=== PATIENT | female | born 1970 | race Caucasian/White ===

== ENCOUNTER 2017-01-09 12:51 | Emergency (ER) | payer MEDICAID, OTHER ==
[~2017-01-09] VITALS: Ht 162.6 cm; Wt 87.1 kg
[2017-01-09 13:00] VITALS: BP_SYST 133
--- NOTE | 2017-01-09 13:03 | NUR ---
Pt to bed 8 via wheelchair
--- NOTE | 2017-01-09 13:10 | NUR ---
PT. TO ER FOR RIGHT KNEE PAIN R/T TWIST THIS MORNING, PER PT. SHE HURT HER KNEE A WEEK AGO STATES THAT THIS MORNING SHE WAS PLAYING WITH HER DOG GOT OUT OF THE BED TOO FAST AND TWISTED HER KNEE HEARD A POP, PAIN 6/10, DENIES ANY OTHER COMPLAINT, NO REDNESS, MILD SWELLING AT SITE, LIMITES ROM OF THE KNEE
--- NOTE | 2017-01-09 13:16 | NUR ---
URINE PREG NEG IC PASS
--- NOTE | 2017-01-09 13:33 | NUR ---
DR. HUBBARD AT BEDSIDE EXAMINING THE PT.
--- NOTE | 2017-01-09 14:00 | NUR ---
Patient given written and verbal discharge instructions and verbalizes understanding. ER MD DR. HUBBARD discussed with patient the results and treatment provided. Patient in stable condition. ID arm band removed. Rx of ILTRAM NAPROXEN given. Patient educated on pain management and to follow up with PMD. Pain Scale 0/10 Opportunity for questions provided and answered.
== END 2017-01-09 14:00 | disposition home or self-care (01) ==
LOC: SED 12:51
DX: S83.91XA Sprain of unspecified site of right knee, initial encounter (principal); X50.1XXA Overexertion from prolonged static or awkward postures, initial encounter; Y93.9 Activity, unspecified; Y92.89 Other specified places as the place of occurrence of the external cause; Y99.8 Other external cause status
CPT/HCPCS: 73564; 81025; 99284

== ENCOUNTER 2018-12-22 21:13 | Emergency (ER) | payer MEDICAID ==
[~2018-12-22] VITALS: Ht 162.6 cm; Wt 83.9 kg
[2018-12-22] MEDS ORDERED: NACL 0.9% 1,000 ML IV ONE (21:38)
[2018-12-22 21:40] VITALS: BP_SYST 152
[2018-12-22] MEDS ORDERED: ONDANSETRON HCL 4 MG/2 ML VIAL IVP ONE (21:45)
[2018-12-22] MEDS ORDERED: ASPIRIN 81 MG TAB.CHEW PO ONE (21:45)
[2018-12-22 22:33] LABS: HEMATOCRIT 38.2 % (36-48); HEMOGLOBIN 12.8 g/dL (12.0-16.0); LYMPHOCYTES % (AUTO) 28.7 % (20.5-51.5); MEAN CORPUSCULAR HEMOGLOBIN 30 pg (27-31); MEAN CORPUSCULAR HGB CONC 34 % (32-36); MEAN CORPUSCULAR VOLUME 88 fL (79.0-98.0); MONOCYTES % (AUTO) 8.7 % (1.7-9.3); NEUTROPHILS % (AUTO) 60.2 % (40.0-70.0); PLATELET COUNT (AUTO) 262 K/uL (130-430); RED BLOOD CELL COUNT(AUTO) 4.35 MIL/uL (4.2-6.2); RED CELL DISTRIBUTION WIDTH 13.5 % (9.0-15.0); WHITE BLOOD COUNT (AUTO) 8.3 K/uL (4.8-10.8)
[2018-12-22 22:34] LABS: BASOPHILS % (AUTO) 0.4 % (0.0-2.0); EOSINOPHILS # (AUTO) 0.2 K/uL (0.0-0.4); LYMPHOCYTES # (AUTO) 2.4 K/uL (1.0-5.5); MONOCYTES # (AUTO) 0.7 K/uL (0.0-1.0)
[2018-12-22 22:41] LABS: CALCIUM 8.2 mg/dL (8.4-11.0); CREATININE 0.62 mg/dL (0.55-1.30); POTASSIUM 3.7 mmol/L (3.5-5.1)
[2018-12-22 22:47] LABS: ALBUMIN 3.2 g/dL (3.4-4.8); TOTAL BILIRUBIN 0.3 mg/dL (0.0-1.0)
[2018-12-22 22:56] LABS: INR 0.9 (0.8-1.2); PROTHROMBIN TIME 9.5 SECS (9.5-12.5)
[2018-12-22] MEDS ORDERED: KETOROLAC TROMETHAMINE 30 MG VIAL IVP ONE (23:00)
[2018-12-22 23:13] LABS: BILIRUBIN,URINE NEGATIVE (NEGATIVE); CLARITY/URINE CLEAR (CLEAR); COLOR,URINE YELLOW (YELLOW); GLUCOSE,URINE NEGATIVE (NEGATIVE); KETONES,URINE NEGATIVE (NEGATIVE); LEUKOCYTE ESTERASE ,URINE NEGATIVE (NEGATIVE); NITRITE, URINE NEGATIVE (NEGATIVE); PROTEIN URINE NEGATIVE (NEGATIVE); UROBILINOGEN,URINE 0.2 (0.2-1.0)
[2018-12-22 23:19] LABS: BLOOD, URINE TRACE (NEGATIVE)
[2018-12-22 23:21] LABS: BACTERIA,URINE FEW /HPF (None Seen); WBC,URINE 0-3 /HPF (0-3)
[2018-12-22 23:53] VITALS: BP_SYST 152
== END 2018-12-22 23:53 | disposition home or self-care (01) ==
LOC: SED 21:13
DX: K52.9 Noninfective gastroenteritis and colitis, unspecified (principal); K59.00 Constipation, unspecified; E78.00 Pure hypercholesterolemia, unspecified; F41.9 Anxiety disorder, unspecified; R03.0 Elevated blood-pressure reading, without diagnosis of hypertension
CPT/HCPCS: 36415; 71045; 80053; 81000; 82150; 82550; 83605; 83690; 84484; 85025; 85610; 85730; 87040; 93005; 96361; 96374; 96375; 99284; J1885; J2405; J7030

== ENCOUNTER 2020-02-15 08:59 | Emergency (ER) | payer MEDICAID ==
[~2020-02-15] VITALS: Ht 162.6 cm; Wt 88.5 kg
[2020-02-15 09:10] VITALS: BP_SYST 139
--- NOTE | 2020-02-15 09:10 | NUR ---
Patient to ER bed 6 to gown for evaluation. Side rails up.
--- NOTE | 2020-02-15 09:15 | NUR ---
Pt walked into ER w/ c/o burning to Right Knee. Reports she put capsaicin on after her workout due to inflammation and pain. Denies pain currently. V/S stable, pt is afebrile. Resting in bed, will continue to monitor.
--- NOTE | 2020-02-15 09:15 | NUR ---
ER at bedside examining patient.
--- NOTE | 2020-02-15 09:20 | NUR ---
medicated the pt w/ Prednisone and Claratin per md order
[2020-02-15] MEDS ORDERED: PREDNISONE 20 MG TABLET PO ONE (09:30)
[2020-02-15] MEDS ORDERED: LORATADINE 10 MG TABLET PO ONE (09:30)
--- NOTE | 2020-02-15 09:30 | NUR ---
Patient given written and verbal discharge instructions and verbalizes understanding. ER MD discussed with patient the results and treatment provided. Patient in stable condition. ID arm band removed. Rx of Zyrtec, Prednisone and Triamcinolone given. Patient educated on pain management and to follow up with PMD. Pain Scale 0. Opportunity for questions provided and answered. Medication side effect fact sheet provided.
[2020-02-15 09:37] VITALS: BP_SYST 139
== END 2020-02-15 09:37 | disposition home or self-care (01) ==
LOC: SED 08:59
DX: L25.9 Unspecified contact dermatitis, unspecified cause (principal); E78.00 Pure hypercholesterolemia, unspecified; F41.9 Anxiety disorder, unspecified
CPT/HCPCS: 99283; J7512